=== PATIENT | male | born 1990 | race Caucasian/White ===

== ENCOUNTER 2018-11-05 09:56 | Emergency (ER) | payer OTHER ==
[2018-11-05 10:01] VITALS: BP 132/68; PULSE 64; TEMP 98.2; BMI 26.6
[2018-11-05] MEDS ORDERED: DIPHTH,PERTUSS(ACELL),TET 0.5 ML DISP.SYRIN IM ONE ×2 (11:09→11:12)
[2018-11-05] MEDS ORDERED: IBUPROFEN 400 MG TABLET (FP) PO ONE ×2 (11:09→11:12)
--- NOTE | 2018-11-05 11:20 | PDOC ---
History of Present Illness - General Chief Complaint: Eye Problem Stated Complaint: LT EYE SWELLING Time Seen by Provider: 11/05/18 10:03 History Source: Patient - History of Present Illness Timing/Duration: 1 week Past History - Past Medical History Allergies/Adverse Reactions: Allergies Allergy/AdvReac Type Severity Reaction Status Date / Time No Known Allergies Allergy Verified 04/16/14 18:48 Home Medications: Ambulatory Orders Unobtainable Home Med List 0 dose .ROUTE UTDICT 04/16/14 Erythromycin 0.5% Eye Ointment [Erythromycin 0.5% Eye Ointment -] 1 applic OS DAILY #1 tube 11/05/18 COPD: No CHF: No Hypercholesterolemia: No - Surgical History Cholecystectomy: No - Immunization History Immunization Up to Date: No - Suicide/Smoking/Psychosocial Hx Smoking History: Never smoked Have you smoked in the past 12 months: No Information on smoking cessation initiated: No Hx Alcohol Use: No Drug/Substance Use Hx: No Substance Use Type: None Review of Systems - Review of Systems Constitutional: No: Chills, Fever HEENTM: Yes: Eye Pain. No: Blurred Vision, Tearing *Physical Exam - Vital Signs Last Vital Signs Temp Pulse Resp BP Pulse Ox 98.2 F 64 18 132/68 98 11/05/18 09:59 11/05/18 09:59 11/05/18 09:59 11/05/18 09:59 11/05/18 09:59 - Physical Exam Comments: 11/05/18 11:24 Pt sitting in ER with sunglasses on, complaining of photophobia General Appearance: Yes: Appropriately Dressed. No: Apparent Distress HEENT: positive: Normal Voice, Other (minimal edema to l eyelid, no erythema or sig ttp, conjunctival clear w/ no dc or tearing, no fb on lid eversion, large corneal uptake on alcazar lamp) Neck: positive: Supple Respiratory/Chest: negative: Respiratory Distress Integumentary: positive: Dry, Warm Neurologic: positive: Fully Oriented, Alert, Normal Mood/Affect Moderate Sedation - Procedure Monitoring Vital Signs: Procedure Monitoring Vital Signs Temperature 98.2 F 11/05/18 09:59 Pulse Rate 64 11/05/18 09:59 Respiratory Rate 18 11/05/18 09:59 Blood Pressure 132/68 11/05/18 09:59 O2 Sat by Pulse Oximetry (%) 98 02/11/19 09:59 Medical Decision Making - Medical Decision Making 11/05/18 11:13 28-year-old male, no significant history, here with L eyelid swelling/pain and mild itching that started a week ago after he states a piece of wood flew into his eye while at work. States he irrigated eye and currently has no FB sensation. States pain mostly located to upper lid and also reports photophobia. No visual changes, tearing or discharge. Using unknown over-the- counter eyedrop with no relief. No contact lens use See exam Corneal abrasion Large uptake on alcazar lamp, no gross fb -tetanus -pain control -dc w/ abx ointment -cool compresses/oral antihistamine for possible allergic rxn to lid, unlikely periorbital cellulitis -will give optho f/u given size of abrasion -reason to return to ED d/w pt *DC/Admit/Observation/Transfer Diagnosis at time of Disposition: Corneal abrasion Qualifiers: Encounter type: initial encounter Laterality: left Qualified Code(s): S05.02XA - Injury of conjunctiva and corneal abrasion without foreign body, left eye, initial encounter Eyelid edema Qualifiers: Laterality: left Qualified Code(s): H02.846 - Edema of left eye, unspecified eyelid - Discharge Dispostion Disposition: HOME Condition at time of disposition: Stable - Prescriptions Prescriptions: Erythromycin 0.5% Eye Ointment [Erythromycin 0.5% Eye Ointment -] 1 applic OS DAILY #1 tube - Referrals Referrals: Nimesh Beth MD [Staff Physician] - - Patient Instructions Printed Discharge Instructions: Corneal Abrasion Additional Instructions: Parece que tienes un rasguo dentro de tu dianelys remigio, que se curar a tiempo. Hemos empezado a usar ponce pomada antibitica para prevenir infecciones. Usted tambin luna ponce vacuna contra el ttanos hoy. La hinchazn de los prpados y la picazn pueden deberse a ponce reaccin alrgica local. Aplique compresas fras 3-4 veces al da y puede leanne Claritin o Zyrtec de venta tatiana segn sea necesario para la picazn. Dado el tamao del rasguo, hemos dado ponce referencia para el oftalmlogo, por favor earle un seguimiento la prxima semana Si los sntomas empeoran, regrese a la [place] - Post Discharge Activity Forms/Work/School Notes: Back to Work
== END 2018-11-05 11:32 | disposition home or self-care (01) ==
LOC: JERFT 09:56
PROC: 3E0234Z Introduction of Serum, Toxoid and Vaccine into Muscle, Percutaneous Approach (ICD-10-PCS; principal; 2018-11-05)
DX: S05.02XA Injury of conjunctiva and corneal abrasion without foreign body, left eye, initial encounter (principal); W20.8XXA Other cause of strike by thrown, projected or falling object, initial encounter; Y93.89 Activity, other specified; Y92.69 Other specified industrial and construction area as the place of occurrence of the external cause; Y99.0 Civilian activity done for income or pay
CPT/HCPCS: 90471; 90715; 99281-25